=== PATIENT | female | born 1955 | race Caucasian/White ===

== ENCOUNTER → 2019-01-23 09:36 | Outpatient (CLI) | payer BC, SELFPAY | PROVIDERS: PCP Internal Medicine; Visit Provider Internal Medicine | DX: M85.851 Other specified disorders of bone density and structure, right thigh (principal); Z78.0 Asymptomatic menopausal state; E04.9 Nontoxic goiter, unspecified; S32.010D Wedge compression fracture of first lumbar vertebra, subsequent encounter for fracture with routine healing; Z87.891 Personal history of nicotine dependence | CPT/HCPCS: 77080 ==

== ENCOUNTER → 2019-04-11 09:34 | Outpatient (CLI) | payer BC, SELFPAY ==
--- NOTE | 2019-04-11 | DI.MG.S_ITS ---
BILATERAL DIGITAL SCREENING MAMMOGRAM 3D/2D WITH CAD: 04/11/2019 CLINICAL: Routine screening. Comparison is made to exam dated: 07/12/2006 [facility]. The tissue of both breasts is heterogeneously dense. This may lower the sensitivity of mammography. Current study was also evaluated with a Computer Aided Detection (CAD) system. No significant masses, calcifications, or other findings are seen in either breast. There has been no significant interval change. IMPRESSION: NEGATIVE There is no mammographic evidence of malignancy. A 1 year screening mammogram is recommended. This exam was interpreted at Station ID: [id number]. NOTE: For mammograms, a report in lay terms will be sent to the patient. Approximately 15% of breast malignancies will not be visualized mammographically. In the management of a palpable breast mass, a negative mammogram must not discourage biopsy of a clinically suspicious lesion. Electronically Signed By: Kyrie villar/jerrell:04/13/2019 06:41:11 letter sent: Normal Exam ACR BI-RADS Category 1: Negative 3341F
== END ==
PROVIDERS: PCP Internal Medicine; Visit Provider Internal Medicine
DX: Z12.31 Encounter for screening mammogram for malignant neoplasm of breast (principal)
CPT/HCPCS: 77063; 77067

== ENCOUNTER → 2020-02-14 15:29 | Outpatient (CLI) | payer BC, SELFPAY ==
[2020-02-15 09:00] LABS: COVID19 Sendout NOT DETECTED (Not Detect)
== END ==
PROVIDERS: PCP Internal Medicine; Visit Provider Physician Assistant
DX: Z01.812 Encounter for preprocedural laboratory examination (principal)
CPT/HCPCS: 87635

== ENCOUNTER 2020-02-17 10:22 | Day surgery (SDC) | payer BC, SELFPAY ==
[2020-02-17] VITALS (8 sets, daily range): BP systolic 103–155; BP diastolic 45–77; PULSE 61–75; RESP 12–20; TEMP 36.1–36.7; O2SAT 94–98; BMI 23.4
--- NOTE | 2020-02-17 | PATH_ITS ---
[facility] Accession Number: [id number] . 01 Material submitted: . colon - SIGMOID COLON POLYP BIOPSY . 01 Diagnosis: Sigmoid Colon Polyp, Biopsy: Hyperplastic polyp. MRV 02/18/2020 1159 Local . 01 Electronically signed: . Ulises Aguilar MD, PhD, Pathologist NPI- [id number] . 01 Gross description: . SIGMOID COLON POLYP BIOPSY: Received in formalin is 1 fragment(s) of conti, soft tissue measuring 0.8 x 0.2 x 0.1 cm submitted entirely in 1 cassette(s) /QBJ 02/18/2020 0112 Local . 01 Pathologist provided ICD-10: K63.5 . 01 CPT . 408328 Performed at: [address] [facility] [id number] MD aRndy Foy MD Phone: [phone]
[2020-02-17] MEDS: SODIUM CHLORIDE 0.9% 1,000 ML 50 ML IV (11:09)
[2020-02-17] MEDS: fentaNYL 250 MCG/5 ML INJ IV (12:27)
[2020-02-17] MEDS: MIDAZOLAM 5 MG/5 ML VIAL IV (12:28)
--- NOTE | 2020-02-17 12:44 | PM.OP.ENDO ---
Operative Date/Time/Diagnoses Date of procedure: 02/17/20 Time of procedure: 12:44 Pre-op diagnosis: See indication and findings Procedure & Clinicians Study performed: Colonoscopy Same procedure as scheduled: Yes Indications: History of colon polyps Surgeon: David Gracia Procedure Notes Procedure in detail: After informed consent was obtained the patient was placed in left lateral decubitus position. The video colonoscope was introduced the rectum slowly advanced cecum. Preparation was good. On slow withdrawal mucosa was carefully examined. Scope was removed. The patient tolerated procedure well. Blood loss none Complications none Sedation Total sedation time 10 minutes Versed 6 mg fentanyl 150 micro g IV titration Findings 1. 5 mm polyp in the sigmoid Jumbo biopsy removed completely 2. Otherwise negative colonoscopy to cecum Will get back to her up out pathology of the polyp but unless a more advanced polyp the new standard recommendations would suggest recall in 7-10 years.
--- NOTE | 2020-02-17 12:46 | P.HP_ITS ---
History of Present Illness History of Present Illness Date Patient Seen: 02/17/20 Time Patient Seen: 12:47 Chief complaint: [id number] Narrative: History of colon polyps Patient History Family & Social History Social History: household members spouse Tobacco & Substance use: Smoking Status Former smoker alcohol intake current alcohol intake frequency a few times a week Meds Home Medications and Allergies Home Medications Medication Instructions Recorded Confirmed Type AMLODIPINE BESYLATE (#NORVASC) 5 mg PO DAILY #90 02/25/13 02/17/20 Rx fluoxetine 40 mg PO DAILY 02/17/20 02/17/20 History thyroid (pork) [Kimberly Thyroid] 120 mg PO DAILY 02/17/20 02/17/20 History Allergies Allergy/AdvReac Type Severity Reaction Status Date / Time No Known Drug Allergies Allergy Verified 02/17/20 11:06 Exam Vital Signs (past 8 hours): - 02/17/20 10:58 Temperature 97.3 F L Pulse Rate 66 Respiratory Rate 18 Blood Pressure 155/77 H Pulse Oximetry 98 Oxygen Delivery Method Room Air Narrative Exam Narrative: Oropharynx free of lesions Chest clear to auscultation percussion Cardiac exam reveals no S3 or murmur Assessment & Plan Assessment & Plan narrative: History of colon polyps need for follow-up colonoscopy. Risks, benefits, and alternatives have been explained.
--- NOTE | 2020-02-17 13:09 | SUR.PHASEI ---
Recieved report from Amandeep Pineda RN. Assumed care of pt.
== END 2020-02-17 14:11 | disposition home or self-care (01) ==
PROVIDERS: PCP Internal Medicine; Referring Provider Internal Medicine Gastroenterology; Visit Provider Internal Medicine Gastroenterology
PROC: 0DJD8ZZ Inspection of Lower Intestinal Tract, Via Natural or Artificial Opening Endoscopic (ICD-10-PCS; CPT 45378; principal; 2020-02-17 12:30)
DX: Z12.11 Encounter for screening for malignant neoplasm of colon (principal); Z86.010 Personal history of colon polyps; K63.5 Polyp of colon
CPT/HCPCS: 45380; J2250; J3010

== ENCOUNTER → 2020-07-11 19:39 | Outpatient (ROUT) | payer BC, SELFPAY ==
[2020-07-11 20:02] LABS: Add Manual Diff / Slide Review NO; Basophils Absolute Auto 0 /uL (0-100); Basophils Percent Auto 0.5 % (0-2); Eosinophils Absolute Auto 100 /uL (0-450); Hematocrit 43.7 % (36-46); Hemoglobin 14.6 g/dL (12.0-16.0); Lymphocytes Absolute Auto 1900 /uL (1100-4500); Lymphocytes Percent Auto 27.3 % (25-40); Mean Corpuscular HGB Conc 33.3 % (30-36); Mean Corpuscular Hemoglobin 29.2 PG (26-34); Mean Corpuscular Volume 87.7 fL (80-100); Monocytes Absolute Auto 600 /uL (0-900); Monocytes Percent Auto 9.3 % (3-14); Neutrophils Absolute Auto 4200 /uL (1500-7000); Neutrophils Percent Auto 61.9 % (50-75); Platelet Count 263 X10^3/uL (150-400); Red Blood Cell Count 4.98 X10^6/uL (4.0-5.2); Red Cell Distribution Width 13.6 % (11.6-14.8); White Blood Cell Count 6.9 X10^3/uL (4.5-11.0)
[2020-07-11 20:07] LABS: Alanine Aminotransferase 22 IU/L (<35); Albumin 4.4 g/dL (3.5-5.0); Albumin Globulin Ratio 1.5 (1.0-2.8); Alkaline Phosphatase 68 U/L (38-126); Aspartate Aminotransferase 28 IU/L (14-36); BUN Creatinine Ratio 29.5 (6-22); Bilirubin Total 0.6 mg/dL (0.2-1.3); Blood Urea Nitrogen 18 mg/dL (7-17); Calcium 9.7 mg/dL (8.4-10.2); Carbon Dioxide 30 mmol/L (22-32); Chloride 104 mmol/L (98-107); Cholesterol 287 mg/dL (140-199); Estimated Glomerular Filt Rate > 60.0 mL/min (>60); Glucose 96 mg/dL (80-110); HEMOLYSIS < 15 (0-50); Potassium 4.3 mmol/L (3.4-5.1); Sodium 136 mmol/L (137-145); Total Protein 7.4 g/dL (6.3-8.2); Triglycerides 65 mg/dL (35-150)
[2020-07-11 20:16] LABS: HDL Cholesterol 133 mg/dL (40-60); LDL Cholesterol Calculated 141 mg/dL (<100)
[2020-07-11 20:38] LABS: TSH w/ Reflex to FT4 < 0.02 uIU/mL (0.47-4.68)
[2020-07-11 21:14] LABS: Free T4, Direct Thyroxine 1.36 ng/dL (0.78-2.19)
== END ==
PROVIDERS: PCP Internal Medicine; Visit Provider Internal Medicine
DX: Z00.00 Encounter for general adult medical examination without abnormal findings (principal); E03.9 Hypothyroidism, unspecified; I10 Essential (primary) hypertension
CPT/HCPCS: 80053; 80061; 84439; 84443; 85025

== ENCOUNTER → 2020-10-26 18:55 | Outpatient (ROUT) | payer BC, SELFPAY ==
[2020-10-26 19:31] LABS: Free T3, Triiodothyronine Free 3.99 pg/mL (2.77-5.27); T4 Total Thyroxine 6.89 ug/dL (5.5-11.0); Triiodothryronine T3 Uptake 31.9 % (23.5-40.5)
[2020-10-26 19:32] LABS: Prolactin 10.8 ng/mL (3.0-18.6)
[2020-10-26 19:44] LABS: TSH w/ Reflex to FT4 0.18 uIU/mL (0.47-4.68)
[2020-10-26 20:20] LABS: Free T4, Direct Thyroxine 1.01 ng/dL (0.78-2.19)
== END ==
PROVIDERS: PCP Internal Medicine; Visit Provider Internal Medicine
DX: E03.9 Hypothyroidism, unspecified (principal); D35.2 Benign neoplasm of pituitary gland
CPT/HCPCS: 84146; 84436; 84439; 84443; 84479; 84481

== ENCOUNTER → 2022-06-21 13:55 | Outpatient (CLI) | payer BC, SELFPAY ==
[2022-06-21 15:29] LABS: Influenza A - CEPHEID Flu A NEGATIVE (NEGATIVE); Influenza B - CEPHEID Flu B NEGATIVE (NEGATIVE); Respiratory Syncytial Virus Negative (Negative)
[2022-06-21 15:32] LABS: COVID-19 CEPHEID 4-PLEX PCR Negative (Negative)
== END ==
PROVIDERS: PCP Physician Assistant; Visit Provider Nurse Practitioner Family
DX: R05.9 Cough, unspecified (principal)
CPT/HCPCS: 0241U

== ENCOUNTER → 2023-05-29 14:39 | Outpatient (CLI) | payer BC, SELFPAY ==
--- NOTE | 2023-05-29 | DI.MG.S_ITS ---
BILATERAL DIGITAL SCREENING MAMMOGRAM 3D/2D WITH CAD: 05/29/2023 CLINICAL: Routine screening. Comparison is made to exam dated: 04/11/2019 mammogram - [facility]. Both breasts are heterogeneously dense, which may obscure small masses (category c / 51-75% glandular tissue). Current study was also evaluated with a Computer Aided Detection (CAD) system. No significant masses, calcifications, or other findings are seen in either breast. There has been no significant interval change. IMPRESSION: NEGATIVE There is no mammographic evidence of malignancy. A 1 year screening mammogram is recommended. Based on the Tyrer Cuzick model (a risk assessment model) the patient's lifetime risk is 8.0% and her 10 year risk is 4.0%. According to the ACR, ACS, and NCCN guidelines, an annual breast MRI exam along with mammogram is recommended if the patient's lifetime risk is 20% or greater. This exam was interpreted at Station ID: [id number]. NOTE: For mammograms, a report in lay terms will be sent to the patient. Approximately 15% of breast malignancies will not be visualized mammographically. In the management of a palpable breast mass, a negative mammogram must not discourage biopsy of a clinically suspicious lesion. Electronically Signed By: Kyrie villar/jerrell:05/29/2023 17:47:53 letter sent: Normal Exam ACR BI-RADS Category 1: Negative 3341F
== END ==
PROVIDERS: PCP Physician Assistant; Referring Provider Physician Assistant; Visit Provider Physician Assistant
DX: Z12.31 Encounter for screening mammogram for malignant neoplasm of breast (principal)
CPT/HCPCS: 77063; 77067

== ENCOUNTER → 2024-11-26 15:30 | Outpatient (CLI) | payer BC, SELFPAY ==
--- NOTE | 2024-11-26 15:34 | DI.MG.S_ITS ---
MM screening mammo BI: 11/26/2024. BI-RADS: 1 CLINICAL: 69-year old female for bilateral screening mammogram. Tyrer-Cuzick lifetime risk of 4.6%. No personal or first-degree family history of breast cancer. PRIOR EXAMS 05/29/2023, 04/11/2019. MAMMOGRAPHY TECHNIQUE: 2D and 3D (tomosynthesis) digital mammographic views obtained, with additional images as needed for full coverage. Current study was also evaluated with a Computer Aided Detection (CAD) system. DENSITY C. The breasts are heterogeneously dense, which may obscure small masses. MAMMOGRAPHY FINDINGS Bilateral: No suspicious mass, asymmetry, microcalcification, or other abnormality seen. No significant change from comparison. IMPRESSION: * No evidence of malignancy. RECOMMENDATIONS Bilateral * Annual screening mammography. OVERALL ASSESSMENT CATEGORY BI-RADS-1: Negative. The [employer] recommends annual screening mammography beginning at age 40 for women with average risk of breast cancer. ELECTRONICALLY SIGNED: Lucita Hester M.D. on 11/27/2024 at 09:07:20 AM PT Interpreting Station ID: [id number]
== END ==
PROVIDERS: PCP Family Medicine; Referring Provider Family Medicine; Visit Provider Family Medicine
DX: Z12.31 Encounter for screening mammogram for malignant neoplasm of breast (principal); R92.333 Mammographic heterogeneous density, bilateral breasts
CPT/HCPCS: 77063; 77067

== ENCOUNTER 2024-12-29 07:18 | Day surgery (SDC) | payer BC, SELFPAY ==
[2024-12-29 07:39] VITALS: BP 141/69; PULSE 62; RESP 16; TEMP 36.2; O2SAT 99
[2024-12-29] MEDS: LACTATED RINGERS 1,000 ML 42 ML IV (07:56)
--- NOTE | 2024-12-29 08:31 | P.HP_ITS ---
History of Present Illness History of Present Illness Chief complaint[place] [facility] [place]ative: 69-year-old female with history of colon polyps on last colonoscopy several years ago. [facility] Medical History Preventative health care Multiple actinic keratoses History of colon polyps Borderline hyperlipidemia History of sleep apnea Hypothyroidism Hypertension Social History household members: spouse Smoking Status: Former smoker alcohol intake: current Meds Home Medications and Allergies Home Medications Medication Instructions Recorded Confirmed Type amlodipine 5 mg tablet 5 mg PO DAILY #90 tabs 06/23/24 12/29/24 Rx levothyroxine 100 mcg tablet 100 mcg PO DAILY #90 tabs 06/23/24 12/29/24 Rx Allergies Allergy/AdvReac Type Severity Reaction Status Date / Time corn AdvReac Verified 12/29/24 07:38 soy AdvReac Verified 12/29/24 07:38 wheat AdvReac Verified 12/29/24 07:38 Review of Systems Review of Systems Narrative: Review of systems negative to direct questioning with the exception of the previously mentioned chronic conditi Exam Vital Signs (past 8 hours): - 12/29/24 07:39 Temperature 97.1 F L Pulse Rate 62 Respiratory Rate 16 Blood Pressure 141/69 H Pulse Oximetry 99 Oxygen Delivery Method Room Air Oxygen Delivery Method Room Air Narrative Exam Narrative: Head is normocephalic and atraumatic. Neck is supple. Back is without CVA or spinous process tenderness. Lungs are clear to auscultation. Heart has a regular rate and rhythm with no murmur or gallop. abdomen is soft and nontender with normal bowel sounds. Neurological exam is grossly nonfocal. Extremities manifests full range of motion. Assessment & Plan Assessment and plan (1) History of colon polyps: Status: Acute Plan I have recommended colonoscopy. Alternatives, risks and benefits were discussed in detail. Questions were answered to the patient's satisfaction. She desires to proceed as I have outlined. Time-Based Coding :: [TOTAL MINUTES] spent with patient and on the chart (including review of chart, obtaining history, exam, reviewing outside data, placing orders, documenting exam and treatment plan, and counseling patient) on [DATE]. [employer] Machine Operator Document charge(s): Yes
[2024-12-29 09:11] VITALS: BP 110/64; PULSE 65; RESP 15; TEMP 36.3; O2SAT 99
--- NOTE | 2024-12-29 09:14 | PM.OP.1 ---
Operative Date/Time/Diagnoses Date of procedure: 12/29/24 Time of procedure: 08:30 Pre-op diagnosis: History of polyp Post-op diagnosis: same Procedure & Clinicians Procedure: colonoscopy Same procedure as scheduled: Yes Indications: history of polyp Surgeon: Ze Mann Click Yes if Unassisted: Yes Anesthesia Type: MAC +/- Operative Notes Findings: normal colon Closure Type: not applicable Specimen(s): none sent Estimated Blood Loss (mL): 0 Procedure in detail: after obtaining informed consent properly identifying the patient the patient was transported to the endo suite and was placed on the table in the supine position. She was relative the left lateral decubitus position and IV sedation was administered. When an adequate level had been reached, the procedure was begun. A 2 m flexible Olympus fiberoptic colonoscope was passed transanally into the rectum and around the cecum under direct endoscopic vision. Cecum was identified positive at the ileocecal valve and confluence of the tenia coli. Prep was adequate, exam was performed retrograde. Cecum and ascending colon were normal in appearance, without evidence of polyps, flat adenomas, arteriovenous malformations or ulcers. Hepatic flexure, transverse colon and splenic flexure were similarly normal in appearance without evidence of mucosal abnormality. Descending colon was unremarkable in appearance as well without polyps or other mucosal abnormalities. Sigmoid colon was somewhat tortuous however I noted no diverticuli nor any mucosal abnormality. The rectum was normal as the scope was withdrawn. The patient tolerated the procedure well and was transported to the recovery room in good condition. Complications: none Post-operative Condition: stable Disposition: PACU Plan for aftercare: discharged home
[2024-12-29 09:21] VITALS: BP 125/65; PULSE 69; RESP 20; TEMP 36.3; O2SAT 99
--- NOTE | 2024-12-29 09:32 | PM.HP.IH.1 ---
History of Present Illness History of Present Illness [place] [facility]: 69-year-old female with history of colon polyps on last colonoscopy several years ago. [facility] Medical History Preventative health care Multiple actinic keratoses History of colon polyps Borderline hyperlipidemia History of sleep apnea Hypothyroidism Hypertension Social History household members: spouse Smoking Status: Former smoker alcohol intake: current Meds Home Medications and Allergies Home Medications Medication Instructions Recorded Confirmed Type amlodipine 5 mg tablet 5 mg PO DAILY #90 tabs 06/23/24 12/29/24 Rx levothyroxine 100 mcg tablet 100 mcg PO DAILY #90 tabs 06/23/24 12/29/24 Rx Allergies Allergy/AdvReac Type Severity Reaction Status Date / Time corn AdvReac Verified 12/29/24 07:38 soy AdvReac Verified 12/29/24 07:38 wheat AdvReac Verified 12/29/24 07:38 Exam Vital Signs (past 8 hours): - 12/29/24 07:39 12/29/24 09:11 12/29/24 09:21 Temperature 97.1 F L 97.4 F L 97.4 F L Pulse Rate 62 65 69 Respiratory Rate 16 15 20 Blood Pressure 141/69 H 110/64 125/65 Pulse Oximetry 99 99 99 Oxygen Delivery Method Room Air Room Air Room Air Oxygen Delivery Method Room Air Assessment & Plan Time-Based Coding :: [TOTAL MINUTES] spent with patient and on the chart (including review of chart, obtaining history, exam, reviewing outside data, placing orders, documenting exam and treatment plan, and counseling patient) on [DATE]. [employer] Machine Stacker Document charge(s): Yes
== END 2024-12-29 09:30 | disposition home or self-care (01) ==
PROVIDERS: PCP Family Medicine; Referring Provider Surgery; Visit Provider Surgery
PROC: 0DJD8ZZ Inspection of Lower Intestinal Tract, Via Natural or Artificial Opening Endoscopic (ICD-10-PCS; CPT 45378; principal; 2024-12-29 08:30)
DX: Z12.11 Encounter for screening for malignant neoplasm of colon (principal); Z86.0100 Personal history of colon polyps, unspecified; Z87.891 Personal history of nicotine dependence
CPT/HCPCS: 45378; J2704